=== PATIENT | male | born 1975 | race American Indian/Alaskan Native ===

== ENCOUNTER 2017-03-12 23:09 | Emergency (ER) | payer OTHER ==
[2017-03-12 23:22] VITALS: BP 104/64
[2017-03-13] MEDS ORDERED: BOOSTRIX IM ONE (03:38)
[2017-03-13] MEDS ORDERED: MOTRIN PO ONE (03:39)
[2017-03-13] MEDS ORDERED: FUL-GLO OP ONE (03:39)
--- NOTE | 2017-03-13 04:10 | Emergency Department Report ---
Eye Injury/Foreign Body - HPI Eye Location: Left Severity: Mild Tetanus Status: Not up to Date Eye Symptoms: Eye Pain: Yes, Blurred Vision: No, Eye Redness: Yes, Grinding/ Hammering Metal: No, Used Eye Protection: No, Contact Lens Use: No, Recalls Injury: No, Photophobia: No Other History: 41-year-old male presents with complaint of one day of left eye pain. Patient states he is unsure if he accidentally scratched the surface of his eye while at work or if debris from his workplace may have entered his eye. Patient has injected red left eye with some watery and slightly purulent drainage. Denies any fevers chills, denies blurred vision. ED Review of Systems ROS: Stated complaint: LEFT EYE PAIN Other details as noted in HPI Constitutional: denies: chills, fever Eyes: eye pain, eye discharge. denies: vision change ENT: as per HPI. denies: ear pain, throat pain Respiratory: denies: cough, shortness of breath, wheezing Cardiovascular: denies: chest pain, palpitations Endocrine: no symptoms reported Gastrointestinal: denies: abdominal pain, nausea, diarrhea Genitourinary: denies: urgency, dysuria Musculoskeletal: denies: back pain, joint swelling, arthralgia Skin: denies: rash, lesions Neurological: denies: headache, weakness, paresthesias Psychiatric: denies: anxiety, depression Hematological/Lymphatic: denies: easy bleeding, easy bruising ED Past Medical Hx - Past Medical History Previous Medical History?: No - Surgical History Past Surgical History?: No - Social History Smoking Status: Never Smoker Substance Use Type: None - Medications Home Medications: Home Medications Medication Instructions Recorded Confirmed Last Taken Type Cyclobenzaprine HCl [Flexeril 5 MG 5 mg PO TID #20 tab 03/15/16 Unknown Rx TAB] Ibuprofen [Motrin 600 MG tab] 600 mg PO Q8H PRN #30 tablet 03/15/16 Unknown Rx Glycerin/Propylene Glycol 1 drop OP Q4H PRN #1 drops 03/13/17 Unknown Rx [Artificial Tears Drops] Ibuprofen [Motrin] 800 mg PO Q8HR PRN #25 tablet 03/13/17 Unknown Rx Tobramycin 0.3% [Tobrex] 1 drop OS Q4H #1 bottle 03/13/17 Unknown Rx Eye Injury Exam - Exam General: Vital signs noted. No distress. Alert and acting appropriately. - Visual Acuity Left Vision Acuity Degree: 20/20 Eye Exam: Left Injection (injection of left conjunctival), Left Fluorescein Uptake (mild forcing uptake near left medial canthus. No foreign body visualized, small corneal abrasion), Both EOMI ED Course Vital Signs 03/12/17 23:19 Temperature 98.4 F Pulse Rate 61 Blood Pressure 104/64 O2 Sat by Pulse 100 Oximetry ED Medical Decision Making - Medical Decision Making A/P: Left corneal abrasion 1-tobramycin drops, artificial tears 2-tetanus updated 3-vision is 20/20 bilaterally .follow-up with ophthalmology 4-naproxen when necessary Critical care attestation.: If time is entered above; I have spent that time in minutes in the direct care of this critically ill patient, excluding procedure time. ED Disposition Clinical Impression: Corneal abrasion Qualifiers: Encounter type: initial encounter Laterality: left Qualified Code(s): S05.02XA - Injury of conjunctiva and corneal abrasion without foreign body, left eye, initial encounter Disposition: DC- TO HOME OR SELFCARE Is pt being admited?: No Does the pt Need Aspirin: No Condition: Stable Instructions: Corneal Abrasion (ED) Prescriptions: Glycerin/Propylene Glycol [Artificial Tears Drops] 1 drop OP Q4H PRN #1 drops PRN Reason: Itching Ibuprofen [Motrin] 800 mg PO Q8HR PRN #25 tablet PRN Reason: Pain Tobramycin 0.3% [Tobrex] 1 drop OS Q4H #1 bottle Referrals: BRANDO DIAZ MD [Staff Physician] - 3-5 Days JAZZMINE BONILLA MD [Staff Physician] - 3-5 Days Forms: Accompanied Note, Work/School Release Form(ED) Time of Disposition: 04:13
== END 2017-03-13 04:35 | disposition home or self-care (01) ==
LOC: ED 23:09
DX: S05.02XA Injury of conjunctiva and corneal abrasion without foreign body, left eye, initial encounter (principal); X58.XXXA Exposure to other specified factors, initial encounter; Y93.9 Activity, unspecified; Y92.9 Unspecified place or not applicable; Y99.9 Unspecified external cause status
CPT/HCPCS: 90471; 90715

== ENCOUNTER 2017-05-29 16:33 | Emergency (ER) | payer OTHER ==
[2017-05-29 17:13] LABS: Basophils % (Auto) 1.1 % (0.0-1.8); Eosinophils % (Auto) 2.7 % (0.0-4.3); Hematocrit 45.3 % (35.5-45.6); Hemoglobin 15.1 gm/dl (11.8-15.2); Mean Corpuscular HGB Conc 33 % (32-34); Mean Corpuscular Hemoglobin 30 pg (28-32); Mean Corpuscular Volume 90 fl (84-94); Platelet Count 213 K/mm3 (140-440); Red Blood Count 5.04 M/mm3 (3.65-5.03); Red Cell Distribution Width 14.6 % (13.2-15.2); White Blood Count 6.5 K/mm3 (4.5-11.0)
[2017-05-29 17:31] LABS: Alanine Aminotransferase 16 units/L (7-56); Albumin 4.2 g/dL (3.9-5); Albumin/Globulin Ratio 1.6 %; Alkaline Phosphatase 60 units/L (35-129); Anion Gap 17 mmol/L; BUN/Creatinine Ratio 16; Blood Urea Nitrogen 16 mg/dL (9-20); Calcium 9.2 mg/dL (8.4-10.2); Carbon Dioxide 26 mmol/L (22-30); Chloride 105.3 mmol/L (98-107); Glucose 104 mg/dL (75-100); Potassium 4.9 mmol/L (3.6-5.0); Sodium 143 mmol/L (137-145); Total Protein 6.9 g/dL (6.3-8.2)
[2017-05-29 17:32] LABS: Bilirubin,Direct < 0.2 mg/dL (0-0.2); Bilirubin,Indirect 0.2 mg/dL
[2017-05-29] MEDS ORDERED: NACL 0.9% 1000 ML 1,000 ML IV ONE (21:26)
[2017-05-29] MEDS ORDERED: TORADOL IV ONE (21:26)
[2017-05-29] MEDS ORDERED: NACL ONE (21:30)
--- NOTE | 2017-05-29 21:33 | Emergency Department Report ---
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 THE PAIN RADIATED TO HIS BACK AND HIS ARMS AND SOMETIMES HIS NECK. HIS PAIN IS LIKE A PRESSURE IN NATURE AND BURNING SENSATION AND SOMETIMES CAUSES A DISCOMFORT WITH INSPIRATION MD Complaint: chest pain -: week(s) (1) Onset: during rest Pain Location: substernal Pain Radiation: RUE, LUE, back, neck Severity: moderate Severity scale (0 -10): 8 Quality: pressure, other (LIKE HEART ABURN) Consistency: constant Improves With: nothing Worsens With: nothing Context: recent travel ([employer] , ON [place] RO[address] MANY HOURS PER DAY) Other Symptoms: syncope (NO SYNCOPE BUT FELT SYNCOPAL), palpitations. denies: cough Aspirin use within the Past 7 Days: (0) No - Related Data On Oral Contraceptives: No Previous Rx's Medication Instructions Recorded Last Taken Type Cyclobenzaprine HCl [Flexeril 5 MG 5 mg PO TID #20 tab 03/15/16 Unknown Rx TAB] Ibuprofen [Motrin 600 MG tab] 600 mg PO Q8H PRN #30 tablet 03/15/16 Unknown Rx Glycerin/Propylene Glycol 1 drop OP Q4H PRN #1 drops 03/13/17 Unknown Rx [Artificial Tears Drops] Tobramycin 0.3% [Tobrex] 1 drop OS Q4H #1 bottle 03/13/17 Unknown Rx Ibuprofen [Motrin 800 MG tab] 800 mg PO Q8HR PRN #25 tablet 05/30/17 Unknown Rx Allergies Allergy/AdvReac Type Severity Reaction Status Date / Time No Known Allergies Allergy Verified 05/29/17 21:37 Heart Score - HEART Score History: Slightly suspicious EKG: Normal Age: < 45 Risk factors: No known risk factors Troponin: < normal limit HEART Score: 0 ED Review of Systems ROS: Stated complaint: CHEST PAIN Other details as noted in HPI Constitutional: denies: chills, fever Eyes: denies: eye pain, eye discharge, vision change ENT: denies: ear pain, throat pain Respiratory: SOB at rest. denies: cough, shortness of breath, wheezing Cardiovascular: chest pain, palpitations Endocrine: no symptoms reported Gastrointestinal: denies: abdominal pain, nausea, diarrhea Genitourinary: denies: urgency, dysuria Musculoskeletal: back pain, arthralgia. denies: joint swelling Skin: denies: rash, lesions Neurological: denies: headache, weakness, paresthesias Psychiatric: denies: anxiety, depression Hematological/Lymphatic: denies: easy bleeding, easy bruising ED Past Medical Hx - Past Medical History Previous Medical History?: No - Surgical History Past Surgical History?: No - Family History Family history: no significant - Social History Smoking Status: Never Smoker Substance Use Type: Alcohol, Marijuana - Medications Home Medications: Home Medications Medication Instructions Recorded Confirmed Last Taken Type Cyclobenzaprine HCl [Flexeril 5 MG 5 mg PO TID #20 tab 03/15/16 Unknown Rx TAB] Ibuprofen [Motrin 600 MG tab] 600 mg PO Q8H PRN #30 tablet 03/15/16 Unknown Rx Glycerin/Propylene Glycol 1 drop OP Q4H PRN #1 drops 03/13/17 Unknown Rx [Artificial Tears Drops] Tobramycin 0.3% [Tobrex] 1 drop OS Q4H #1 bottle 03/13/17 Unknown Rx Ibuprofen [Motrin 800 MG tab] 800 mg PO Q8HR PRN #25 tablet 05/30/17 Unknown Rx ED Physical Exam - General Limitations: No Limitations General appearance: alert, in no apparent distress - Head Head exam: Present: atraumatic, normocephalic - Eye Eye exam: Present: normal appearance, EOMI - ENT ENT exam: Present: mucous membranes moist - Neck Neck exam: Present: normal inspection, full ROM - Respiratory Respiratory exam: Present: normal lung sounds bilaterally. Absent: respiratory distress - Cardiovascular Cardiovascular Exam: Present: regular rate, normal rhythm. Absent: systolic murmur, diastolic murmur, rubs, gallop - GI/Abdominal GI/Abdominal exam: Present: soft, normal bowel sounds. Absent: distended, tenderness, guarding - Rectal Rectal exam: Present: deferred - Extremities Exam Extremities exam: Present: normal inspection, full ROM - Back Exam Back exam: Present: normal inspection, full ROM - Neurological Exam Neurological exam: Present: alert, oriented X3, CN II-XII intact - Psychiatric Psychiatric exam: Present: normal affect, normal mood - Skin Skin exam: Present: warm, dry, intact, normal color. Absent: rash ED Course Vital Signs 05/29/17 05/29/17 16:42 22:13 Temperature 97.4 F L Pulse Rate 86 Respiratory 16 18 Rate Blood Pressure 113/68 O2 Sat by Pulse 97 Oximetry BIGG score - Bigg Score Age > 65: (0) No Aspirin use within the Past 7 Days: (0) No 3 or more CAD Risk Factors: (0) No 2 or more Angina events in past 24 hrs: (0) No Known CAD with more than 50% Stenosis: (0) No Elevated Cardiac Markers: (0) No ST Deviation Greater than 0.5mm: (0) No BIGG Score: 0 ED Medical Decision Making - Lab Data Result diagrams: 05/29/17 16:48 05/29/17 16:48 - EKG Data EKG shows normal: sinus rhythm, axis, intervals, QRS complexes (ST OF EARLY REPOLARIZATION) - Radiology Data Radiology results: report reviewed (CT CHEST: 5MM LUNG NODULE RIGHT LOWER LUNG CXR: 5MM RL LUNG NODULE) - Medical Decision Making THERE IS NO PE,PNEUMONIA,AORTIC ANEURYSM AND ALL 3 CARDIAC ENZYME ARE NEGATIVE , HEART SCORE IS L0 AND BIGG SCORE O THUS I WILL D/C PT WITH FOLLOW UP WITH HIS DR. Critical Care Time: Yes Critical care time in (mins) excluding proc time.: 30 Critical care attestation.: If time is entered above; I have spent that time in minutes in the direct care of this critically ill patient, excluding procedure time. ISELA ED Disposition Clinical Impression: Chest wall pain, Pulmonary nodule, right Disposition: DC-01 TO HOME OR SELFCARE Is pt being admited?: No Does the pt Need Aspirin: No Condition: Stable Instructions: Chest Pain (ED), Pulmonary Nodules (ED) Additional Instructions: RETURN TO ED FOR ANY REASON. PLEASE HAVE YOUR DR REPEAT THE CT OF THE CHEST IN 6-12 MONTHS TO SEE IF THE LUNG NODULE IS GROWING Prescriptions: Ibuprofen [Motrin 800 MG tab] 800 mg PO Q8HR PRN #25 tablet PRN Reason: Pain Referrals: DARREN WAGONER MD [Primary Care Provider] - 3-5 Days [facility] [Outside] - 3-5 Days Time of Disposition: 01:58
[2017-05-29 21:56] LABS: INR 0.93 (0.87-1.13)
[2017-05-29 21:57] LABS: Partial Thromboplastin Time 26.3 Sec. (24.2-36.6)
--- NOTE | 2017-05-29 23:01 | Cat Scan Report ---
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 TECHNIQUE: Contiguous axial images were obtained. Additional sagittal and coronal reformatted images were obtained. Max intensity projection images. 100 cc Omnipaque [id number]. FINDINGS: Heart normal in size. Thoracic aorta normal in caliber. No pulmonary embolus. No pathologically enlarged intrathoracic or axillary lymph nodes. Tracheobronchial tree is patent. Mild linear and subsegmental atelectasis at the lung bases. 5 millimeter noncalcified nodule right lower lobe (series 3, image 70). No dense consolidation or effusion. Visualized upper abdomen is unremarkable. Bony thorax is grossly intact. IMPRESSION: No pulmonary embolus. 5 millimeter noncalcified nodule right lower lobe. This may be postinflammatory. If the patient has risk factors such as smoking, followup exam in 12 months could be performed to ensure stability. Mild atelectasis at the lung bases. No dense consolidation or effusion.
--- NOTE | 2017-05-29 23:02 | XRay Report ---
FINAL REPORT EXAM: XR CHEST 1V AP HISTORY: CHEST PAIN COMPARISON: CT of the chest from the same date. FINDINGS: Frontal view(s) of the chest obtained. Cardiac silhouette within normal limits. No gross consolidation or effusion. No pneumothorax. Remote posterior left-sided rib fracture. IMPRESSION: No grossly acute findings. Patient's known 5 millimeter right lower lobe nodule seen on today's chest CT is not visualized by plain film.
[2017-05-30] MEDS ORDERED: NITROSTAT SL PRN (00:50)
[2017-05-30] MEDS ORDERED: PERCOCET 5/325 PO ONE (01:16)
[2017-05-30 02:26] VITALS: BP 129/80
== END 2017-05-30 02:26 | disposition home or self-care (01) ==
LOC: ED 16:33
DX: R07.89 Other chest pain (principal); R91.1 Solitary pulmonary nodule; F12.10 Cannabis abuse, uncomplicated
CPT/HCPCS: 36415; 71010; 71275; 80048; 80074; 84484; 85025; 85610; 85730; 93005; 93010; 96361; 96374; 99291; J1885; J7030; Q9967